=== PATIENT | female | born 1985 | race Caucasian/White ===

== ENCOUNTER 2018-01-27 12:13 | Emergency (ER) | payer OTHER, SELFPAY ==
[~2018-01-27] VITALS: Ht 162.6 cm; Wt 70.9 kg
[2018-01-27 13:32] LABS: MICROSCOPIC AUTO
[2018-01-27 13:33] LABS: CULTURE INDICATED? YES
[2018-01-27 13:34] LABS: BASOPHILS # (AUTO) 0.03 x10^3/uL (0-0.1); BASOPHILS % (AUTO) 0 % (0-1); EOSINOPHILS % (AUTO) 0 % (1-7); LYMPHOCYTES # (AUTO) 1.55 x10^3/uL (1-3.4); LYMPHOCYTES % (AUTO) 13 % (22-44); MD NO; MEAN CORPUSCULAR HEMOGLOBIN 25.3 pg (27.0-34.8); MEAN CORPUSCULAR HGB CONC 32.1 g/dL (32.4-35.8); MEAN CORPUSCULAR VOLUME 78.7 fL (80-100); MEAN PLATELET VOLUME 8.4 fL (7.4-10.4); MONOCYTES # (AUTO) 0.75 x10^3/uL (0.2-0.8); MONOCYTES % (AUTO) 6 % (2-9); NEUTROPHILS # (AUTO) 9.39 x10^3/uL (1.8-6.8); NEUTROPHILS % (AUTO) 80 % (42-75); PLATELET COUNT 380 x10^3/uL (130-400)
[2018-01-27] MEDS ORDERED: SODIUM CHLORIDE FLUSH 10ML SYR IVF ONE (15:00)
[2018-01-27] MEDS ORDERED: MORPHINE SULFATE 4 MG/ML, 1ML ONE (16:28)
[2018-01-27] MEDS ORDERED: ONDANSETRON 2MG/ML, 2ML ONE (16:28)
[2018-01-27] MEDS ORDERED: ONDANSETRON 2MG/ML, 2ML IVPush ONE (16:30)
[2018-01-27] MEDS ORDERED: MORPHINE SULFATE 4 MG/ML, 1ML IVPush PRN (16:30)
[2018-01-27 16:33] VITALS: BP 98/60
[2018-01-27] MEDS ORDERED: OMNIPAQUE 350 MG/ML, 100ML BOTTLE ONE (16:54)
== END 2018-01-27 18:40 | disposition home or self-care (01) ==
LOC: ED 14:51
DX: N30.00 Acute cystitis without hematuria (principal); R11.2 Nausea with vomiting, unspecified
CPT/HCPCS: 36415; 74177; 76830; 81001; 81025; 85025; 87086; 96374; 96375; 99284; J2405; Q9967